=== PATIENT | male | born 1945 | race Caucasian/White ===

== ENCOUNTER → 2016-12-25 | Outpatient (REF) | payer MEDICARE, OTHER ==
[2016-12-25 14:50] LABS: FERRITIN 142 NG/ML (26-388); PERCENT SATURATION 21.6 % (19.7-50.0); TOTAL IRON BINDING CAPACITY 264 UG/DL (250-450)
[2016-12-25 14:53] LABS: VITAMIN B12 LEVEL 1866 PG/ML (247-911)
[2016-12-25 14:54] LABS: FOLATE > 24.0 NG/ML (>5.4)
== END ==
LOC: M LAB REF 14:05
PROVIDERS: ATTEND Internal Medicine Nephrology
DX: D64.9 Anemia, unspecified (principal)

== ENCOUNTER → 2018-07-02 | Outpatient (REF) | payer MEDICARE, OTHER ==
[2018-07-02 19:30] LABS: PERCENT SATURATION 8.7 % (19.7-50.0)
== END ==
LOC: M LAB REF 17:25
PROVIDERS: ATTEND Internal Medicine Nephrology
DX: D50.9 Iron deficiency anemia, unspecified (principal)